=== PATIENT | male | born 1945 | race Caucasian/White ===

== ENCOUNTER 2019-05-05 12:26 | Emergency (ER) | payer BC, MEDICARE ==
[~2019-05-05] VITALS: Ht 177.8 cm; Wt 102.3 kg
--- NOTE | 2019-05-05 12:33 | NUR ---
PT CAME INTO THE ED C/O A LACERATION ON THE HEAD S/P GLF AT 1100.TDAP UP TO DATE. MINIMAL BLEEDING NOTED. PT AAOX4, VSS, BREATHING EVEN AND UNLABORED ON ROOM AIR W/ NAD NOTED. PT CONNECTED TO THE MONITOR AND POX
[2019-05-05] MEDS ORDERED: LIDOCAINE 1%-EPI 1:100,000 20 ML VIAL ONE (12:34)
--- NOTE | 2019-05-05 12:35 | NUR ---
GAETANO SAMPSON AT BEDSIDE [id number] EVAL
--- NOTE | 2019-05-05 12:40 | NUR ---
SOFT COLLAR PLACED PER MD STONE
--- NOTE | 2019-05-05 12:59 | NUR ---
PT TAKEN TO CT
--- NOTE | 2019-05-05 13:09 | NUR ---
PT BACK FROM CT
--- NOTE | 2019-05-05 13:37 | NUR ---
GAETANO SAMPSON AT BEDSIDE FOR SKIN LAC REPAIR
--- NOTE | 2019-05-05 14:00 | NUR ---
Patient discharged to home in stable condition. Written and verbal after care instructions given. Patient verbalizes understanding of instruction.
[2019-05-05 14:03] VITALS: BP 127/81
== END 2019-05-05 14:04 | disposition home or self-care (01) ==
LOC: ER 12:28
DX: S01.01XA Laceration without foreign body of scalp, initial encounter (principal); S09.8XXA Other specified injuries of head, initial encounter; I25.2 Old myocardial infarction; Z95.5 Presence of coronary angioplasty implant and graft; W01.198A Fall on same level from slipping, tripping and stumbling with subsequent striking against other object, initial encounter; Y93.01 Activity, walking, marching and hiking; Y92.34 Swimming pool (public) as the place of occurrence of the external cause; Y99.8 Other external cause status
CPT/HCPCS: 12004; 70450; 72125; 99284; A6403; J3490; L0172

== ENCOUNTER 2019-05-07 09:34 | Emergency (ER) | payer BC, MEDICARE ==
[~2019-05-07] VITALS: Ht 177.8 cm; Wt 97.5 kg
[2019-05-07 09:58] VITALS: BP 122/74
== END 2019-05-07 11:14 | disposition home or self-care (01) ==
LOC: ER 09:34
DX: S01.01XD Laceration without foreign body of scalp, subsequent encounter (principal); I10 Essential (primary) hypertension; Z95.818 Presence of other cardiac implants and grafts; W01.0XXD Fall on same level from slipping, tripping and stumbling without subsequent striking against object, subsequent encounter
CPT/HCPCS: 99281; A6403